=== PATIENT | male | born 1950 | race Caucasian/White ===

== ENCOUNTER 2019-08-27 07:47 | Emergency (ER) | payer MEDICARE ==
[~2019-08-27] VITALS: Ht 177.8 cm; Wt 82.0 kg
--- NOTE | 2019-08-27 08:37 | NUR ---
PT BROUGHT BACK FROM TRIAGE WITH CHIEF COMPLAINT OF NUMBNESS IN FEET AND BED BUGS. THE PATIENT WAS WASHED/DECON FOR BED BUGS AND STATES HE IS FEELING MUCH BETTER.
--- NOTE | 2019-08-27 09:05 | NUR ---
MEME ALEJANDRE AT BEDSIDE, DOPPLAR PULSES ON LEFT HOWEVER UNABLE TO LOCATE ON RT. MD AWARE. CMS INTACT BILAT.
[2019-08-27 09:07] LABS: BASOPHILS # (AUTO) 0.02 x10^3/uL (0-0.1); BASOPHILS % (AUTO) 0 % (0-1); EOSINOPHILS % (AUTO) 10 % (1-7); LYMPHOCYTES # (AUTO) 1.27 x10^3/uL (1-3.4); LYMPHOCYTES % (AUTO) 15 % (22-44); MD NO; MEAN CORPUSCULAR HGB CONC 32.4 g/dL (33.2-36.2); MEAN CORPUSCULAR VOLUME 89.7 fL (81-97); MEAN PLATELET VOLUME 8.9 fL (7.4-10.4); MONOCYTES # (AUTO) 0.76 x10^3/uL (0.2-0.8); MONOCYTES % (AUTO) 9 % (2-9); NEUTROPHILS # (AUTO) 5.51 x10^3/uL (1.8-6.8); NEUTROPHILS % (AUTO) 66 % (42-75); PLATELET COUNT 194 x10^3/uL (130-400); RED BLOOD COUNT 4.46 x10^6/uL (4.38-5.82); RED CELL DISTRIBUTION WIDTH 16.1 % (9.4-14.8)
[2019-08-27 09:16] VITALS: BP 127/53
[2019-08-27 09:24] LABS: ALBUMIN 3.5 g/dL (3.4-5.0); ANION GAP 6 mmol/L (5-15); CALCIUM 9.1 mg/dL (8.5-10.1); CHLORIDE 106 mmol/L (98-107); CREATININE 1.47 mg/dL (0.7-1.3)
--- NOTE | 2019-08-27 09:50 | NUR ---
DISCHARGE INSTRUCTIONS REVIEWED. CLEAN CLOTHES PROVIDED
== END 2019-08-27 10:23 | disposition home or self-care (01) ==
LOC: ED 10:10
DX: R20.2 Paresthesia of skin (principal); G62.9 Polyneuropathy, unspecified; I10 Essential (primary) hypertension; I25.10 Atherosclerotic heart disease of native coronary artery without angina pectoris
CPT/HCPCS: 36415; 80048; 82040; 85025; 99283

== ENCOUNTER 2019-11-03 17:59 | Emergency (ER) | payer MEDICARE ==
[~2019-11-03] VITALS: Ht 177.8 cm; Wt 75.0 kg
[2019-11-03 18:01] VITALS: BP 136/75
--- NOTE | 2019-11-03 18:08 | NUR ---
PT AMBULATED WITH TECH TO ROOM. STEADY GAIT.
--- NOTE | 2019-11-03 18:10 | NUR ---
PT STATES SINCE 1PM THIS AFTERNOON HE HAS BEEN HAVING DIARRHEA. DENIES FEVER, NAUSEA, OR VOMITTING.
--- NOTE | 2019-11-03 18:51 | NUR ---
RN PROVIDED PT WITH CRACKERS AND SPRIT. PT TBDC.
== END 2019-11-03 18:58 | disposition home or self-care (01) ==
LOC: ED 18:34
DX: R19.7 Diarrhea, unspecified (principal); Z59.0 Homelessness; I10 Essential (primary) hypertension; I25.10 Atherosclerotic heart disease of native coronary artery without angina pectoris
CPT/HCPCS: 99281